=== PATIENT | female | born 1985 | race Caucasian/White ===

== ENCOUNTER 2016-09-04 12:19 | Emergency (ER) | payer OTHER ==
[~2016-09-04] VITALS: Ht 165.1 cm; Wt 54.4 kg
[~2016-09-04 12:19] MED LIST: AUGMENTIN 875875 MG PO; BACTRIM DS 8001 TA1 PO; CLINDAMYCIN150 MG PO; CLONAZEPAM1 MG PO; KEPPRA250 MG PO; KLONOPIN2 MG PO; LITHIUM CARBON300 M1 PO; LITHIUM CARBON300 MG PO; MOTRIN800 MG PO; PREDNISONE10 MG PO; PREDNISONE20 M1 PO; SEROQUEL100 MG PO; SUBOXONE 8 MG-1 EACH SL; VICODIN ES 7501 TAB PO; VISTARIL25 M2 PO; ZIPRASIDONE HCL80 M1 PO
[2016-09-04] MEDS ORDERED: ZANTAC 150150 MG PO (12:26)
[2016-09-04] MEDS ORDERED: ZYRTEC ALLERGY10 MG PO (12:56)
[2016-09-04] MEDS ORDERED: DELTASONE20 M1 PO (14:42)
== END 2016-09-04 14:53 | disposition home or self-care (01) ==
LOC: ED 12:19
DX: T78.40XA Allergy, unspecified, initial encounter (principal); X58.XXXA Exposure to other specified factors, initial encounter

== ENCOUNTER → 2016-09-16 | Outpatient (CLI) | payer OTHER ==
[~2016-09-16] MED LIST changes: +DELTASONE20 M1 PO; +ZANTAC 150150 MG PO; +ZYRTEC ALLERGY10 MG PO
[2016-09-17 06:10] LABS: IMMUNOGLOBULIN IgE 002170 <1 IU/mL (0-100)
[2016-09-17 09:12] LABS: COMPLEMENT C4 001834 22 mg/dL (14-44)
[2016-09-19 06:15] LABS: HAZELNUT (FILBERT) IGE <0.10 kU/L (Class 0); LATEX SPECIFIC IGE <0.10 kU/L (Class 0); MILK (COW), IGE <0.10 kU/L (Class 0); PEANUT, IGE <0.10 kU/L (Class 0)
== END | disposition home or self-care (01) ==
LOC: LAB 13:46
PROVIDERS: Allergy & Immunology Allergy
DX: D84.1 Defects in the complement system (principal); T78.3XXA Angioneurotic edema, initial encounter; L27.2 Dermatitis due to ingested food; T78.40XA Allergy, unspecified, initial encounter

== ENCOUNTER 2018-04-05 16:15 | Emergency (ER) | payer OTHER ==
[~2018-04-05] VITALS: Ht 165.1 cm; Wt 59.0 kg
[2018-04-05] MEDS ORDERED: DILANTIN30 MG PO (16:18)
[2018-04-05] MEDS ORDERED: AMOXICILLIN500 M2 PO (18:13)
[2018-04-05] MEDS ORDERED: FLONASE ALLERG9.9 ML NAS (18:13)
== END 2018-04-05 18:30 | disposition home or self-care (01) ==
LOC: ED 16:15
DX: R51 Headache (principal); R56.9 Unspecified convulsions; J01.90 Acute sinusitis, unspecified; F17.200 Nicotine dependence, unspecified, uncomplicated; Z79.899 Other long term (current) drug therapy

== ENCOUNTER → 2018-09-17 | Outpatient (CLI) | payer OTHER ==
[~2018-09-17] MED LIST changes: +AMOXICILLIN500 M2 PO; +CEPHALEXIN500 M1 PO; +DILANTIN30 MG PO; +FLONASE ALLERG9.9 ML NAS
== END | disposition home or self-care (01) ==
LOC: MRI 12:53
DX: G93.89 Other specified disorders of brain (principal); G40.119 Localization-related (focal) (partial) symptomatic epilepsy and epileptic syndromes with simple partial seizures, intractable, without status epilepticus; V89.2XXD Person injured in unspecified motor-vehicle accident, traffic, subsequent encounter

== ENCOUNTER → 2019-03-22 | Outpatient (CLI) | payer OTHER ==
--- NOTE | ~2019-03-22 | EKG ---
[place], [place] ELECTROCARDIOGRAM REPORT NAME: TERESA YING UNIT #: [id number] ROOM: DOCTOR: LILLIAN DRAFT REPORT BIRTHDATE: [birth year] [facility] Test Date: 2019-03-22 Test Time: 09:57:53 Pat Name: TERESA YING Department: card Room: Gender: F Instant Printer Operator: Peggy Dejesus : 1985 Requested By: MOE MANNING Order Number: [id number] Reading MD: Gordy Noriega Measurements Intervals [place] Rate: 124 P: 53 IA: 107 QRS: 87 QRSD: 100 T: -85 QT: 395 QTc: 568 Interpretive Statements Sinus tachycardia Inferior infarct, age indeterminate Anterolateral Q wave, probably normal for age Prolonged QT interval Electronically Signed On 03-22-2019 7:49:42 PDT by Gordy Noriega CM:EKGRPT:ELECTROCARDIOGRAM REPORT [id number] MOE SNYDER DRAFT REPORT MOE MANNING
== END | disposition home or self-care (01) ==
LOC: CARD 09:50
DX: Z51.81 Encounter for therapeutic drug level monitoring (principal); Z79.899 Other long term (current) drug therapy

== ENCOUNTER → 2019-09-27 | Outpatient (CLI) | payer OTHER ==
[2019-09-27 11:01] LABS: BASO % 0.5 % (0.0-1.0); EOS # 0.3 10*3/uL (0.0-0.4); EOS % 4.2 % (1.0-4.0); HEMATOCRIT 43.9 % (37.0-47.0); HEMOGLOBIN 14.2 g/dl (12.0-16.0); LYMPH # 2.2 10*3/uL (1.3-4.4); MEAN CELL VOLUME 93.4 fl (81.0-99.0); MEAN CORPUSCULAR HGB 30.2 pg (27.0-31.0); MEAN CORPUSCULAR HGB CONC 32.3 g/dl (33.0-37.0); MEAN PLATELET VOLUME 10.6 fl (9.6-12.3); MONO # 0.6 10*3/uL (0.1-1.0); MONO % 10.2 % (3.0-9.0); NEUT % 48.9 % (47.0-73.0); PLATELET COUNT AUTOMATED 371 10*3/uL (130-400); RED CELL DISTRI WIDTH 13.4 % (0-14.5); WHITE BLOOD COUNT 6.2 10*3/uL (4.8-10.8)
[2019-09-27 11:17] LABS: ALBUMIN 3.9 gm/dl (3.1-4.5); ALKALINE PHOSPHATASE 77 U/L (45-117); BUN 13 mg/dl (7-24); CHLORIDE 113 mmol/L (98-107); CREATININE 0.88 mg/dL (0.55-1.02); POTASSIUM 3.5 mmol/L (3.5-5.1); SGOT/AST 10 IU/L (3-35); SGPT/ALT 19 U/L (12-78); SODIUM 143 mmol/L (136-145); TOTAL PROTEIN 7.4 gm/dL (6.4-8.2)
== END | disposition home or self-care (01) ==
LOC: LAB 10:12
PROVIDERS: Psychiatry & Neurology Neurology
DX: Z51.81 Encounter for therapeutic drug level monitoring (principal); G40.119 Localization-related (focal) (partial) symptomatic epilepsy and epileptic syndromes with simple partial seizures, intractable, without status epilepticus

== ENCOUNTER 2022-04-25 09:02 | Emergency (ER) | payer OTHER ==
[2022-04-25 13:45] LABS: BASO % 0.1 % (0.0-1.0); HEMATOCRIT 41.7 % (37.0-47.0); LYMPH # 1.8 10*3/uL (1.3-4.4); LYMPH % 24.9 % (27.0-41.0); MEAN CELL VOLUME 88.7 fl (81.0-99.0); MEAN CORPUSCULAR HGB 29.6 pg (27.0-31.0); MEAN CORPUSCULAR HGB CONC 33.3 g/dl (33.0-37.0); MEAN PLATELET VOLUME 9.9 fl (9.6-12.3); MONO # 0.5 10*3/uL (0.1-1.0); MONO % 7.5 % (3.0-9.0); NEUT # 4.9 10*3/uL (2.3-7.9); NEUT % 67.1 % (47.0-73.0); PLATELET COUNT AUTOMATED 375 10*3/uL (130-400); WHITE BLOOD COUNT 7.2 10*3/uL (4.8-10.8)
[2022-04-25 14:12] LABS: ALKALINE PHOSPHATASE 111 U/L (45-117); BUN 11 mg/dl (7-24); CHLORIDE 109 mmol/L (98-107); CPK 156 U/L (26-192); CREATININE 0.74 mg/dL (0.55-1.02); LIPASE 78 U/L (73-393); SGOT/AST 22 IU/L (3-35); SGPT/ALT 42 U/L (12-78); SODIUM 139 mmol/L (136-145); TOTAL PROTEIN 8.3 gm/dL (6.4-8.2)
[2022-04-25 14:16] LABS: ACETAMINOPHEN (TYLENOL) < 5.0 ug/ml (10-30); BETA-HCG, QUANT < 1.0 mIU/mL (1-3); ETHYL ALCOHOL < 3.0 mg/dl (<3)
== END 2022-04-25 21:34 | disposition home or self-care (01) ==
LOC: ED 09:02
PROVIDERS: Emergency Medicine
DX: F29 Unspecified psychosis not due to a substance or known physiological condition (principal)

== ENCOUNTER 2023-12-31 23:41 | Emergency (ER) | payer OTHER ==
[~2023-12-31] VITALS: Ht 165.1 cm; Wt 55.8 kg
== END 2024-01-01 00:36 | disposition left against medical advice (07) ==
LOC: ED 23:41
DX: F41.9 Anxiety disorder, unspecified (principal); F31.9 Bipolar disorder, unspecified; Z53.21 Procedure and treatment not carried out due to patient leaving prior to being seen by health care provider

== ENCOUNTER 2024-02-08 22:30 | Emergency (ER) | payer OTHER ==
[~2024-02-08] VITALS: Ht 165.1 cm; Wt 68.0 kg
== END 2024-02-08 23:02 ==
LOC: ED 22:30
DX: R45.851 Suicidal ideations (principal); F41.9 Anxiety disorder, unspecified; F31.9 Bipolar disorder, unspecified; Z98.890 Other specified postprocedural states